=== PATIENT | female | born 1965 | race Two or more races ===

== ENCOUNTER 2025-01-03 07:31 | Emergency (ER) | payer MEDICAID, SELFPAY ==
[2025-01-03 07:53] VITALS: BP 127/78; PULSE 66; RESP 16; TEMP 36.6; O2SAT 98
--- NOTE | 2025-01-03 08:07 | EKG_ITS ---
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
--- NOTE | 2025-01-03 08:08 | XR_ITS ---
Examination: PA chest single view Technique: Upright PA chest single view Exam date and time: January 03, 2025 0849 hrs. Indications: Chest pain today. Findings: Normal heart size Minor atelectasis in the right upper lobe No pneumonia or pulmonary edema Impression: No pneumonia or pulmonary edema
--- NOTE | 2025-01-03 08:09 | PD.EDRME ---
Rapid Medical Screening Exam RME Arrival date/time: 01/03/25 07:31 59-year-old female who presents to the emergency department with complaints of neck pain, nausea and fatigue this a.m. I have greeted and performed a focused initial assessment of this patient. Initial appropriate labs ordered at this time. A comprehensive ED assessment and evaluation of the patient and analysis of all test and completion of medical decision making process will be conducted by additional ED provider. Chief Complaint: Dizziness Time Seen by Provider: 01/03/25 07:59 Vital signs: Vital Signs Temperature 97.8 F 01/03/25 07:53 Pulse Rate 66 01/03/25 07:53 Respiratory Rate 16 01/03/25 07:53 Blood Pressure 127/78 01/03/25 07:53 Pulse Oximetry (%) 98 01/03/25 07:53 Oxygen Delivery Method Room Air 01/03/25 07:53
[2025-01-03] MEDS: ONDANSETRON ODT 4 MG TABRAP PO (08:33)
[2025-01-03 09:48] LABS: Basophils % (Auto) 1 % (0-2.5); Eosinophils % (Auto) 1 % (0-10); Hematocrit 35.9 % (36.0-46.0); Hemoglobin 11.9 g/dL (12.0-16.0); Immature Granulocytes % (Auto) 0 % (0-0); Immature Granulocytes Auto 0.02 Thou/mm3 (0.00-0.00); Lymphocytes # (Auto) 0.8 Thou/mm3 (1.0-4.8); Lymphocytes % (Auto) 12 % (10-50); Mean Corpuscular HGB Conc 33.1 g/dl (31.0-37.0); Mean Corpuscular Volume 88 fL (80-100); Monocytes # (Auto) 0.4 Thou/mm3 (0.0-0.8); Monocytes % (Auto) 5 % (0-12); Neutrophils # (Auto) 5.5 Thou/mm3 (1.8-7.7); Neutrophils % (Auto) 81 % (37-80); Nucleated Red Blood Cell % 0 /100 WBC (0); Platelet Count 267 Thou/mm3 (140-440); RDW Standard Deviation 40.3 fL (36.4-46.3); White Blood Count 6.8 Thou/mm3 (3.6-11.0)
[2025-01-03 10:02] LABS: B-Type Natriuretic Peptide 46 pg/mL (0-100)
[2025-01-03 10:06] LABS: Alanine Aminotransferase 28 U/L (10-49); Albumin, Serum 4.2 gm/dL (3.5-5.0); Albumin/Globulin Ratio 1.6 (1.2-2.2); Alkaline Phosphatase 122 U/L (46-116); Anion Gap 11 (7-16); Aspartate Amino Transferase 34 U/L (0-34); BUN/Creatinine Ratio 22 Ratio (12-20); Bilirubin,Total 0.7 mg/dL (0.3-1.2); Blood Urea Nitrogen 13 mg/dL (9-23); Calcium 9.3 mg/dL (8.3-10.6); Calcium (Corrected) 9.3 mg/dL (8.5-10.1); Carbon Dioxide 24.2 mMol/L (20.0-31.0); Chloride 106 mMol/L (98-107); Creatinine (Component) 0.6 mg/dL (0.6-1.3); Globulin 2.6 gm/dL (2.3-3.5); Glucose 104 mg/dL (74-106); Lipase 44 U/L (12-53); Magnesium 2.1 mg/dL (1.6-2.6); Osmolality,Calculated 281 (275-295); Potassium 3.9 mMol/L (3.4-5.1); Sodium 141 mMol/L (136-145); Total Protein 6.8 gm/dL (5.7-8.2); Troponin I < 0.002 ng/mL (0.0-0.045); eGFR > 60 See Note
[2025-01-03 10:12] LABS: Partial Thromboplastin Time 23.9 Seconds (22.0-36.0); Prothrombin Time 10.5 Seconds (9.0-12.2)
--- NOTE | 2025-01-03 12:27 | PD.EDDIZZY ---
ED Dizzyness RME/HPI General Chief Complaint: Dizziness Stated Complaint: Dizziness since sunday condition worsened today Time Seen by Provider: 01/03/25 07:59 Arrival date/time: 01/03/25 07:31 RME / HPI RME / HPI Narrative: 59-year-old female patient with no significant medical history, came in for evaluation regarding neck pain. Onset of symptoms for several months as neck pain, posterior neck radiating to bilateral shoulder, associated with dizziness, it comes and goes, severity moderate. Patient denies any vertigo. Denies any fever denies any trauma denies any fall denies any other complaints patient is ambulatory. Related Data Previous Rx's ?Medication ?Instructions ?Recorded ondansetron HCl 8 mg tablet 8 mg PO TID PRN nausea and 08/04/21 vomiting #10 tabs ibuprofen 600 mg tablet 600 mg PO Q6H #30 tabs 08/13/23 meloxicam 15 mg tablet 15 mg PO QDAY #30 tabs 01/03/25 Allergies Allergy/AdvReac Type Severity Reaction Status Date / Time No Known Allergies Allergy Verified 01/03/25 07:36 Review of Systems Review of Systems Narrative Review of Systems: Review of system reviewed and within normal limits except mentioned in HPI ED Exam Narrative Physical exam: VITAL SIGNS: Reviewed. GENERAL APPEARANCE: Alert and interactive, follows commands, no acute distress, HEAD AND FACE: Non-traumatic. ENT: PERRL, pink conjunctivitis, eyelid no trauma, Mucous membrane moist. NECK: Supple, posterior neck tenderness, no nuchal rigidity. CHEST: No tenderness, no crepitus, no paradoxical movement, no retractions. LUNGS: Clear, well ventilated, symmetric, no rales, no wheezing, no ronchi, no stridor, good breath sounds bilaterally. HEART: Regular rate, regular rhythm, no murmur, no gallops. ABDOMEN: Soft, positive bowel sounds, nondistended, no guarding, nontender, no rebound, no masses, RECTAL: Deferred. GENITAL: Deferred. NEUROLOGICAL: Gross motor function intact sensory function intact, Appropriate for age. MUSCULOSKELETAL: low back nontender, full range of motion. EXTREMITIES: Nontender, full range of motion. SKIN: Color pink, dry, no rash, no lacerations, no abrasions, no contusions. LYMPHATICS: Deferred. Course Quality Measures none Orders Category Date Time Status Assistant Construction Superintendent STAT Care 01/03/25 08:08 Active EKG (ED ONLY) *Do not use* NOW Care 01/03/25 08:08 Completed Insert IV STAT Care 01/03/25 08:08 Active EKG (ED Only) Stat Exams 01/03/25 08:07 Draft XR chest 1V portable Stat Exams 01/03/25 08:08 Completed B-Type Natriuretic Peptide Stat Lab 01/03/25 09:13 Completed CBC Stat Lab 01/03/25 09:13 Completed Comprehensive Metabolic Panel Stat Lab 01/03/25 09:13 Completed Lipase Stat Lab 01/03/25 09:13 Completed Magnesium Stat Lab 01/03/25 09:13 Completed Partial Thromboplastin Time Stat Lab 01/03/25 09:13 Completed Prothrombin Time with INR Stat Lab 01/03/25 09:13 Completed Troponin I Stat Lab 01/03/25 09:13 Completed Ondansetron Odt [Zofran Odt] Med 01/03/25 08:25 Discontinued 4 mg PO X1 ONE Vital Signs Vital signs: Vital Signs Temperature 97.8 F 01/03/25 07:53 Pulse Rate 66 01/03/25 07:53 Respiratory Rate 16 01/03/25 07:53 Blood Pressure 127/78 01/03/25 07:53 Pulse Oximetry (%) 98 01/03/25 07:53 Oxygen Delivery Method Room Air 01/03/25 07:53 Dizziness MDM Narrative MDM Narrative:: 59-year-old female patient with no significant medical history, came in for evaluation regarding neck pain. Onset of symptoms for several months as neck pain, posterior neck radiating to bilateral shoulder, associated with dizziness, it comes and goes, severity moderate. Patient denies any vertigo. Denies any fever denies any trauma denies any fall denies any other complaints patient is ambulatory. I personally reviewed and interpreted the x-ray of this patient. There is no acute abnormalities found, no infiltrates no pneumothorax no hemothorax normal chest x-ray. Review of other structures was without significant abnormal findings also. I additionally reviewed the radiologist report and agree with the interpretation. EKG as interpreted by me showed normal sinus rhythm, ventricular rate of 64 bpm, no ST segment elevation depression noted. Laboratory workup all came back normal. Patient was advised to closely follow-up with PCP and asked for outpatient MRI of the cervical spine. At this time there is no need to do emergency MRI patient not showing any neurologic deficit below the neck. Patient is ambulatory. Patient appears nontoxic and hemodynamically stable. Patient discharged home and instructed to follow-up with primary care provider in 24 to 48 hours. Instructed to return to the emergency department immediately if worsening of symptoms Patient data External records reviewed:: None Clinical information provided by:: patient Social determinants that could affect healthcare access:: none Patient has the following chronic illnesses:: None How is presenting disease/condition affected by chronic disease/condition?: no chronic disease Evaluation data The following diagnostics were reviewed and interpreted by me:: lab results, radiology exam(s) and EKG tracing(s) Lab and/or radiology exams considered but not ordered:: None Interpretation Summary: See results MDM Medications / Prescriptions Medications or Prescriptions considered but not ordered:: None Medication administrations:: Medication Administration History Discontinued Medications Ondansetron HCl (Ondansetron Odt 4 Mg Tabrap) 4 mg PO X1 ONE; Protocol Stop: 01/03/25 08:26 Last Admin: 01/03/25 08:33 Dose: 4 mg Documented By: KIMBERLY Luna Consultations Consultation(s) initiated? (list below): No Diagnosis Dizziness Differential Diagnosis: other (Chronic neck pain, dizziness, radiculopathy cervical) Most likely diagnosis given after review of the tests above:: Chronic neck pain, dizziness Admission Indicated Admission indicated?: not indicated Admission Request Was there a request for admission?: No Disposition Plan Disposition Plan: Discharge Discharge Attestation Discharge Attestation: The patient and all family members were given an opportunity to ask questions and understood the discharge instructions. Discharge instructions specifically effects, indications for sooner follow up or return to the emergency department, and the expected course of current diagnosis. Patient condition: Stable Discharge Plan Plan Patient Disposition: HOME (Self Care) Disposition Comment: stable Prescriptions/Referrals Prescriptions/Med Rec: New meloxicam 15 mg tablet 15 mg PO QDAY Qty: 30 0RF No Action ondansetron HCl 8 mg tablet 8 mg PO TID PRN (Reason: nausea and vomiting) Qty: 10 0RF ibuprofen 600 mg tablet 600 mg PO Q6H Qty: 30 0RF Referrals: No Primary/Family,Physician [Primary Care Provider] - In 1 week Problem List Clinical Impression: Dizziness, Neck pain Patient/Caregiver Discharge Instructions Discharge Activity: activity as tolerated Education Materials: ED Neck Pain Additional Instructions: Thank you for the opportunity for serving you today. You are stable for discharged . You are advised to: Follow-up with your PCP in 1 to 2 days Return to ED for worsening of symptoms Increase oral fluids Take medication as prescribed Print Language: Tamazight Stand Alone Forms: [employer] Award Info., Patient Portal Info Letter
== END 2025-01-03 13:04 | disposition home or self-care (01) ==
PROVIDERS: Nurse Practitioner Primary Care; Emergency Provider Emergency Medicine
DX: M54.2 Cervicalgia (principal); R42 Dizziness and giddiness
CPT/HCPCS: 36415; 71045; 80053; 83690; 83735; 83880; 84484; 85025; 85610; 85730; 93005; 99283; Q0162

== ENCOUNTER 2025-05-06 07:40 | Emergency (ER) | payer SELFPAY ==
--- NOTE | 2025-05-06 07:48 | EKG_ITS ---
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
[2025-05-06 07:54] VITALS: BP 129/74; PULSE 71; RESP 18; TEMP 36.7; O2SAT 97; BMI 22.8
--- NOTE | 2025-05-06 08:00 | XR_ITS ---
Examination: CT brain head without contrast. 2-D sagittal coronal reconstructions Date and time of exam:May 06, 2025 0828 hours INDICATIONS: Generalized head pain and dizziness today CTDI: vol (mGy):44.2 DLP: (mGycm):800 Technique: Multiple CT axial sections of the brain have been obtained, 5 mm slice thickness. Contrast has not been administered. 2-D sagittal, coronal reconstructions have been obtained Low dose protocols were performed. One or more of the following dose reduction techniques were used; automated exposure control, adjustment of the mA and/or KV according to patient size, use of iterative reconstruction technique. Findings: No significant ventricular enlargement. Intra-axial or extra-axial hemorrhage density is not seen. No mass effect or midline shift Basal cisterns are not remarkable. Fourth ventricle is midline. Cranial vault intact. Impression: Negative for acute hemorrhage, mass effect or midline shift Advise clinical correlation follow-up accordingly
--- NOTE | 2025-05-06 08:01 | XR_ITS ---
Examination: PA lateral chest 2 views TECHNIQUE: Upright PA lateral chest 2 views Date and time: May 06, 2025 0859 hours INDICATIONS: Chest pain lightheadedness loss of balance one week FINDINGS: Normal heart size Lungs are clear. Prominent osteopenia IMPRESSION: No active disease
--- NOTE | 2025-05-06 08:01 | PD.EDRME ---
Rapid Medical Screening Exam RME Arrival date/time: 05/06/25 07:40 59-year-old female presents emergency department today for complaints of dizziness ongoing for the last couple of years patient reports an episode last week where she lost vision in her left eye patient denies any disturbances in vision at this time Chief Complaint: Dizziness
[2025-05-06 08:16] LABS: Collection Type, Urine Clean Catch
[2025-05-06 08:30] LABS: Basophils % (Auto) 1 % (0-2.5); Eosinophils % (Auto) 1 % (0-10); Hematocrit 34.6 % (36.0-46.0); Hemoglobin 11.6 g/dL (12.0-16.0); Immature Granulocytes % (Auto) 0 % (0-0); Lymphocytes # (Auto) 1.2 Thou/mm3 (1.0-4.8); Lymphocytes % (Auto) 28 % (10-50); Mean Corpuscular HGB Conc 33.5 g/dl (31.0-37.0); Mean Corpuscular Hemoglobin 29.1 pg (25.0-35.0); Mean Corpuscular Volume 87 fL (80-100); Monocytes # (Auto) 0.3 Thou/mm3 (0.0-0.8); Monocytes % (Auto) 7 % (0-12); Neutrophils # (Auto) 2.7 Thou/mm3 (1.8-7.7); Neutrophils % (Auto) 64 % (37-80); Nucleated Red Blood Cell % 0 /100 WBC (0); Platelet Count 242 Thou/mm3 (140-440); RDW Standard Deviation 40.6 fL (36.4-46.3); Red Blood Count 3.98 Miln/mm3 (4.00-5.20); White Blood Count 4.2 Thou/mm3 (3.6-11.0)
[2025-05-06 08:30] LABS: Amphetamine/Methamp Scrn,U Negative (Negative); Barbiturate Screen,Urine Negative (Negative); Benzodiazepines Screen,Urine Negative (Negative); Benzoylecgonine Screen, Ur Negative (Negative); Fentanyl Screen,Urine Negative (Negative); Opiate Screen,Urine Negative (Negative); THC Screen,Urine Negative (Negative)
[2025-05-06 08:43] LABS: Bilirubin,Urine Negative (Negative); Blood,Urine 1+ (Negative); Clarity,Urine Clear (Clear/Hazy); Color,Urine Lt-Yellow (Lt Yel-Yel); Glucose, Urine Negative (Negative); Ketones,Urine Negative (Negative); Leukocyte Esterase,Urine Negative (Negative); Nitrite,Urine Negative (Negative); PH,Urine 7.5 (5.0-7.0); Protein,Urine Negative (Neg - Trace); RBC,Urine 4 /hpf (0-3); Specific Gravity,Urine 1.009 (1.001-1.035); Squamous Epithelial Cell,Urine < 1 /hpf (0-5); Urobilinogen,Urine Negative mg/dL (0.0-1.0); WBC,Urine 1 /hpf (0-5)
[2025-05-06 08:46] LABS: Partial Thromboplastin Time 26.3 Seconds (22.0-36.0); Prothrombin Time 10.6 Seconds (9.0-12.2)
[2025-05-06 08:55] LABS: Alanine Aminotransferase 17 U/L (10-49); Albumin, Serum 4.3 gm/dL (3.5-5.0); Alkaline Phosphatase 104 U/L (46-116); Anion Gap 6 (7-16); Aspartate Amino Transferase 29 U/L (0-34); BUN/Creatinine Ratio 9 Ratio (12-20); Bilirubin,Total 0.8 mg/dL (0.3-1.2); Blood Urea Nitrogen 6 mg/dL (9-23); Calcium 9.1 mg/dL (8.3-10.6); Calcium (Corrected) 9.1 mg/dL (8.5-10.1); Chloride 106 mMol/L (98-107); Creatinine (Component) 0.7 mg/dL (0.6-1.3); Estimated Creatinine Clearance 59.7 mL/min (>60); Globulin 2.2 gm/dL (2.3-3.5); Glucose 93 mg/dL (74-106); Magnesium 2.2 mg/dL (1.6-2.6); Osmolality,Calculated 278 (275-295); Potassium 4.1 mMol/L (3.4-5.1); Sodium 141 mMol/L (136-145); Total Protein 6.5 gm/dL (5.7-8.2); Troponin I < 0.002 ng/mL (0.0-0.045); eGFR > 60 See Note
[2025-05-06 09:02] LABS: B-Type Natriuretic Peptide 38 pg/mL (0-100)
--- NOTE | 2025-05-06 16:02 | PD.EDDIZZY ---
ED Dizzyness RME/HPI General Chief Complaint: Dizziness Stated Complaint: Loss of vision, dizzy, light headed, unbalance Time Seen by Provider: 05/06/25 12:42 Arrival date/time: 05/06/25 07:40 RME / HPI RME / HPI Narrative: 59-year-old female presents emergency department today for complaints of dizziness ongoing for the last couple of years patient reports an episode last week where she lost vision in her left eye patient denies any disturbances in vision at this time. Patient also complained of chronic neck pain, and for several months, was seen by specialist and was doing exercises on her own with mild improvement. Denies any upper or lower extremity weakness. Denies any other complaints patient is ambulatory. Related Data Previous Rx's ?Medication ?Instructions ?Recorded ondansetron HCl 8 mg tablet 8 mg PO TID PRN nausea and 08/04/21 vomiting #10 tabs ibuprofen 600 mg tablet 600 mg PO Q6H #30 tabs 08/13/23 meloxicam 15 mg tablet 15 mg PO QDAY #30 tabs 01/03/25 Allergies Allergy/AdvReac Type Severity Reaction Status Date / Time No Known Allergies Allergy Verified 05/06/25 07:45 Review of Systems Review of Systems Narrative Review of Systems: Review of system reviewed and within normal limits except mentioned in HPI ED Exam Narrative Physical exam: VITAL SIGNS: Reviewed. GENERAL APPEARANCE: Alert and interactive, follows commands, no acute distress, HEAD AND FACE: Non-traumatic. ENT: PERRL, pink conjunctivitis, eyelid no trauma, Mucous membrane moist. NECK: Supple, posterior neck tenderness, no nuchal rigidity. CHEST: No tenderness, no crepitus, no paradoxical movement, no retractions. LUNGS: Clear, well ventilated, symmetric, no rales, no wheezing, no ronchi, no stridor, good breath sounds bilaterally. HEART: Regular rate, regular rhythm, no murmur, no gallops. ABDOMEN: Soft, positive bowel sounds, nondistended, no guarding, nontender, no rebound, no masses, RECTAL: Deferred. GENITAL: Deferred. NEUROLOGICAL: Gross motor function intact sensory function intact, Appropriate for age. MUSCULOSKELETAL: low back nontender, full range of motion. EXTREMITIES: Nontender, full range of motion. SKIN: Color pink, dry, no rash, no lacerations, no abrasions, no contusions. LYMPHATICS: Deferred. Course Quality Measures none Orders Category Date Time Status EKG (ED ONLY) *Do not use* NOW Care 05/06/25 07:[address] head/brain wo con Stat Exams 05/06/25 08:00 Completed EKG (ED Only) Stat Exams 05/06/25 07:48 Draft XR chest 2V Stat Exams 05/06/25 08:01 Completed B-Type Natriuretic Peptide Stat Lab 05/06/25 08:21 Completed CBC Stat Lab 05/06/25 08:21 Completed Comprehensive Metabolic Panel Stat Lab 05/06/25 08:21 Completed Drug Screen,Urine Stat Lab 05/06/25 08:10 Completed Magnesium Stat Lab 05/06/25 08:21 Completed Partial Thromboplastin Time Stat Lab 05/06/25 08:21 Completed Prothrombin Time with INR Stat Lab 05/06/25 08:21 Completed Troponin I Stat Lab 05/06/25 08:21 Completed Urinalysis Stat Lab 05/06/25 08:10 Completed Vital Signs Vital signs: Vital Signs Temperature 98.0 F 05/06/25 07:54 Pulse Rate 71 05/06/25 07:54 Respiratory Rate 18 05/06/25 07:54 Blood Pressure 129/74 05/06/25 07:54 Pulse Oximetry (%) 97 05/06/25 07:54 Oxygen Delivery Method Room Air 05/06/25 07:54 Dizziness MDM Narrative MDM Narrative:: 59-year-old female presents emergency department today for complaints of dizziness ongoing for the last couple of years patient reports an episode last week where she lost vision in her left eye patient denies any disturbances in vision at this time. Patient also complained of chronic neck pain, and for several months, was seen by specialist and was doing exercises on her own with mild improvement. Denies any upper or lower extremity weakness. Denies any other complaints patient is ambulatory. Patient's CT scan of the head came back unremarkable. Laboratory workup also came back normal. I personally reviewed and interpreted the x-ray of this patient. There is no acute abnormalities found, no infiltrates no pneumothorax no hemothorax normal chest x-ray. Review of other structures was without significant abnormal findings also. I additionally reviewed the radiologist report and agree with the interpretation. EKG as advertised by me showed normal sinus rhythm, ventricular rate of 76 bpm, no ST segment elevation depression noted. Patient appears nontoxic and hemodynamically stable .Decision to discharge the patient. The patient/family was given an opportunity to ask questions and understood their discharge instructions. Patient reports feeling better as well and giving evidence of significant clinical improvement, I believe patient is now a candidate for discharge. Patient data External records reviewed:: None Clinical information provided by:: patient Social determinants that could affect healthcare access:: none Patient has the following chronic illnesses:: None How is presenting disease/condition affected by chronic disease/condition?: exacerbated by Evaluation data The following diagnostics were reviewed and interpreted by me:: lab results, radiology exam(s) and EKG tracing(s) Lab and/or radiology exams considered but not ordered:: None Interpretation Summary: See results MDM Medications / Prescriptions Medications or Prescriptions considered but not ordered:: None none Medication administrations:: None Consultations Consultation(s) initiated? (list below): No Diagnosis Dizziness Differential Diagnosis: benign paroxysmal positional vertigo and other (Dizziness, chronic neck pain) Most likely diagnosis given after review of the tests above:: Dizziness, chronic neck pain Admission Indicated Admission indicated?: not indicated Admission Request Was there a request for admission?: No Disposition Plan Disposition Plan: Discharge Discharge Attestation Discharge Attestation: The patient was given an opportunity to ask questions and understood the discharge instructions. Discharge instructions specifically effects, indications for sooner follow up or return to the emergency department, and the expected course of current diagnosis. Patient condition: Stable Discharge Plan Plan Patient Disposition: HOME (Self Care) Discharge Disposition comment: Stable Prescriptions/Referrals Prescriptions/Med Rec: No Action ondansetron HCl 8 mg tablet 8 mg PO TID PRN (Reason: nausea and vomiting) Qty: 10 0RF ibuprofen 600 mg tablet 600 mg PO Q6H Qty: 30 0RF meloxicam 15 mg tablet 15 mg PO QDAY Qty: 30 0RF Referrals: Yaneli Garcia NP [Primary Care Provider] - In 1 week Problem List Clinical Impression: Dizziness, Chronic neck pain Patient/Caregiver Discharge Instructions Discharge Activity: activity as tolerated Education Materials: ED Chronic Pain Additional Instructions: Thank you for the opportunity for serving you today. You are stable for discharged . You are advised to: Follow-up with your PCP in 1 to 2 days Return to ED for worsening of symptoms Increase oral fluids Take [id number] Tylenol or Motrin as needed for pain Ask your PCP to refer you to physical therapy regarding your neck pain Print Language: Croatian Stand Alone Forms: [employer] Award Info., Patient Portal Info Letter PA/CRM SOLUTION ARCHITECT Supervising Physician PA/CRM SOLUTION ARCHITECT Supervising Physician: Brianna Bonner MD
== END 2025-05-06 16:12 | disposition home or self-care (01) ==
PROVIDERS: Nurse Practitioner Primary Care; Emergency Provider Emergency Medicine; PCP Nurse Practitioner Women's Health
DX: R42 Dizziness and giddiness (principal); G89.29 Other chronic pain; M54.2 Cervicalgia; R07.9 Chest pain, unspecified
CPT/HCPCS: 36415; 70450; 71046; 80053; 80307; 81001; 83735; 83880; 84484; 85025; 85610; 85730; 93005; 99284